=== PATIENT | female | born 1965 | race American Indian/Alaskan Native ===

== ENCOUNTER 2020-05-05 09:16 | Outpatient (CLI) | payer OTHER ==
--- NOTE | 2020-05-05 11:42 | XRay Report ---
LUMBAR SPINE 3 VIEWS INDICATION: BACK PAIN. COMPARISON: No relevant prior imaging study available. FINDINGS: Vertebral body height is maintained. There is moderate mid to lower lumbar spondylosis involving the disks and facets. Alignment is within normal limits. IMPRESSION: 1. No acute findings. RIGHT FOOT 2 VIEWS INDICATION: Right foot pain. COMPARISON: No relevant prior imaging study available. FINDINGS: Hindfoot fusion hardware is noted. There is mature osseous fusion between the talus, calcaneus, and n avicular. Distal fibular cortical plate with screw fixation and syndesmotic screws are noted. No hard naik fracture or loosening is seen. No acute fracture is seen. Osteoarthrosis changes are noted. There is mild subjective osteopenia. Calcaneal enthesopathy is note d. No soft tissue gas or foreign bodies. There is mild diffuse soft tissue swelling. IMPRESSION: 1. No acute skeletal abnormality, postsurgical/degenerative findings as above. Signer Name: Vincent Mendoza MD Signed: 05/05/2020 11:37 AM Workstation Name: [id number]
== END 2020-05-05 09:17 | disposition home or self-care (01) ==
LOC: XRAY 09:16
PROVIDERS: ATTEND Internal Medicine
DX: M47.816 Spondylosis without myelopathy or radiculopathy, lumbar region (principal); M19.071 Primary osteoarthritis, right ankle and foot; M77.31 Calcaneal spur, right foot; F32.9 Major depressive disorder, single episode, unspecified; R22.42 Localized swelling, mass and lump, left lower limb
CPT/HCPCS: 72100